=== PATIENT | female | born 1965 | race Two or more races ===

== ENCOUNTER 2023-02-28 16:32 | Emergency (ER) | payer OTHER ==
[~2023-02-28] VITALS: Ht 167.6 cm; Wt 127.9 kg
[2023-02-28] MEDS ORDERED: INSULIN GL100 UNIT/3 SUBCUTANEO (16:51)
[2023-02-28] MEDS ORDERED: LOSARTAN-HCTZ1 EAC1 PO (16:51)
[2023-02-28] MEDS ORDERED: GABAPENTIN800 M1 PO (16:51)
[2023-02-28] MEDS ORDERED: METFORMIN HCL1000 M3 PO (16:52)
[2023-02-28] MEDS ORDERED: ROSUVASTATIN CAL5 MG PO (16:52)
[2023-02-28] MEDS ORDERED: FAMOTIDINE40 MG PO (16:52)
[2023-02-28] MEDS ORDERED: OMEPRAZOLE40 MG PO (16:52)
[2023-02-28] MEDS ORDERED: MOUNJARO10 MG/0.5 SQ (16:52)
[2023-02-28] MEDS ORDERED: ACTOS30 MG (16:53)
== END 2023-02-28 20:41 | disposition home or self-care (01) ==
LOC: ER 16:32
PROVIDERS: Nurse Practitioner Family
DX: M79.662 Pain in left lower leg (principal); I73.9 Peripheral vascular disease, unspecified; I10 Essential (primary) hypertension; E11.9 Type 2 diabetes mellitus without complications; Z79.4 Long term (current) use of insulin; Z88.0 Allergy status to penicillin; Z88.8 Allergy status to other drugs, medicaments and biological substances
CPT/HCPCS: 36415; 96372; 99282; J1885